=== PATIENT | female | born 1995 | race Caucasian/White ===

== ENCOUNTER 2023-03-13 14:43 | Emergency (ER) | payer SELFPAY | END 2023-03-13 15:17 | disposition home or self-care (01) | LOC: MW.ED 14:43 | DX: S61.411A Laceration without foreign body of right hand, initial encounter (principal); E66.9 Obesity, unspecified; Z68.43 Body mass index [BMI] 50.0-59.9, adult; W31.89XA Contact with other specified machinery, initial encounter; Y92.89 Other specified places as the place of occurrence of the external cause; Y99.0 Civilian activity done for income or pay | CPT/HCPCS: 12001; 99283 ==

== ENCOUNTER 2023-03-18 11:15 | Emergency (ER) | payer OTHER | END 2023-03-18 12:25 | disposition home or self-care (01) | LOC: MW.ED 11:15 | DX: S61.411D Laceration without foreign body of right hand, subsequent encounter (principal); W26.8XXD Contact with other sharp object(s), not elsewhere classified, subsequent encounter | CPT/HCPCS: 73130-26-RT; 73130-RT; 99282; 99283 ==

== ENCOUNTER 2023-07-13 09:09 | Emergency (ER) | payer SELFPAY | END 2023-07-13 10:59 | disposition home or self-care (01) | LOC: MW.ED 09:09 | DX: S97.81XA Crushing injury of right foot, initial encounter (principal); F17.210 Nicotine dependence, cigarettes, uncomplicated; W20.8XXA Other cause of strike by thrown, projected or falling object, initial encounter; Y92.89 Other specified places as the place of occurrence of the external cause; Y99.0 Civilian activity done for income or pay | CPT/HCPCS: 73630-26-RT; 73630-RT; 99283 ==

== ENCOUNTER 2024-03-06 17:43 | Emergency (ER) | payer OTHER, BC | END 2024-03-06 20:38 | disposition home or self-care (01) | LOC: MW.ED 17:43 | DX: S66.515A Strain of intrinsic muscle, fascia and tendon of left ring finger at wrist and hand level, initial encounter (principal); S66.517A Strain of intrinsic muscle, fascia and tendon of left little finger at wrist and hand level, initial encounter; Z75.8 Other problems related to medical facilities and other health care; W20.8XXA Other cause of strike by thrown, projected or falling object, initial encounter; Y99.0 Civilian activity done for income or pay | CPT/HCPCS: 29130; 73090-26-LT; 73090-LT; 73110-26-LT; 73110-LT; 73130-26-LT; 73130-LT; 99283-25 ==